=== PATIENT | male | born 1970 | race Caucasian/White ===

== ENCOUNTER → 2022-07-17 | Outpatient (CLI) | payer BC ==
--- NOTE | 2022-07-17 15:39 | Diagnostic Imaging Report ---
INDICATION: Left shoulder pain. AP, and transscapular views left shoulder are obtained. No fracture or acute bony abnormality seen. There is degenerative change of the AC joint of moderate severity. The glenohumeral joint appears unremarkable. IMPRESSION: Degenerative findings of the AC joint with no acute abnormality left shoulder. Dictated by: Dictated on workstation # [id number]
== END ==
LOC: RAD FS 09:03
PROVIDERS: ATTEND Family Medicine
DX: M19.012 Primary osteoarthritis, left shoulder (principal)
CPT/HCPCS: 73030